=== PATIENT | female | born 1950 | race Two or more races ===

== ENCOUNTER 2019-03-30 11:03 | Emergency (ER) | payer MEDICARE, OTHER ==
[~2019-03-30] VITALS: Ht 162.6 cm; Wt 76.7 kg
--- NOTE | 2019-03-30 11:19 | NUR ---
left thumb pain s/p metal equipment in the gym fell on her thumb. kept comfortable, will continue to monitor accordingly.
--- NOTE | 2019-03-30 11:26 | NUR ---
x-ray tech at bedside
[2019-03-30] MEDS ORDERED: TDAP [DIPH/PERTUSSIS/TET] 0.5 ML VIAL IM ONE ×2 (12:27→12:30)
[2019-03-30 12:32] VITALS: BP 135/81
--- NOTE | 2019-03-30 12:33 | NUR ---
Patient discharged to home in stable condition. Written and verbal after care instructions given. Patient verbalizes understanding of instruction.
== END 2019-03-30 12:33 | disposition home or self-care (01) ==
LOC: ER 11:03
DX: S62.522B Displaced fracture of distal phalanx of left thumb, initial encounter for open fracture (principal); E03.9 Hypothyroidism, unspecified; Z88.6 Allergy status to analgesic agent; W20.8XXA Other cause of strike by thrown, projected or falling object, initial encounter; Y93.B9 Activity, other involving muscle strengthening exercises; Y92.89 Other specified places as the place of occurrence of the external cause; Y99.8 Other external cause status
CPT/HCPCS: 29130; 73140; 90471; 90715; 99283; A6403

== ENCOUNTER 2022-08-09 20:15 | Inpatient (IN) | payer MEDICARE, OTHER ==
[~2022-08-09] VITALS: Ht 162.6 cm; Wt 85.3 kg
--- NOTE | 2022-08-09 20:30 | NUR ---
HIRA 89 FROM HOME C/O "COULDNT TAKE CARE OF MYSELF" PT RANI FROM [facility] BS DIDNT LIKE IT. 08/05/21 LEFT TIB/FIB OSTEOTOMY
--- NOTE | 2022-08-09 21:04 | NUR ---
CALLED [facility], PAGED MELINDA SINGLETON GASTROINTESTINAL TECHNICIAN FOR ADMISSION
[2022-08-09 21:25] LABS: BASOPHILS # (AUTO) 0.1 K/uL (0.0-0.2); BASOPHILS % (AUTO) 2.3 % (0.0-2.0); EOSINOPHILS % (AUTO) 3.4 % (0.0-6.0); HEMATOCRIT 42 % (33-45); HEMOGLOBIN 13.8 g/dL (11.5-14.8); LYMPHOCYTES % (AUTO) 17.2 % (20.0-44.0); MEAN CORPUSCULAR HGB CONC 33 g/dl (31.0-36.0); MEAN CORPUSCULAR VOLUME 88 fL (82-100); MONOCYTES # (AUTO) 0.5 K/uL (0.1-1.30); MONOCYTES % (AUTO) 7.8 % (2.0-12.0); NEUTROPHILS # (AUTO) 4.2 K/uL (1.8-8.9); NEUTROPHILS % (AUTO) 69.3 % (43.0-81.0); PLATELET COUNT (AUTO) 251 K/uL (150-450); WHITE BLOOD COUNT (AUTO) 6.1 K/uL (4.3-11.0)
[2022-08-09 21:30] LABS: CALCIUM, SERUM 9.4 mg/dL (8.5-10.1); CARBON DIOXIDE 28 mmol/L (21-32); CHLORIDE 101 mmol/L (98-107); CREATININE 0.7 mg/dL (0.6-1.3); GLUCOSE 129 mg/dL (74-106); POTASSIUM 3.4 mmol/L (3.5-5.1); SODIUM SERUM 140 mmol/L (136-145); UREA NITROGEN, BLOOD 7 mg/dL (7-18)
--- NOTE | 2022-08-09 21:39 | NUR ---
COVID ANTIGEN COLLECTED SENT TO LAB
--- NOTE | 2022-08-09 21:40 | NUR ---
MRSA COLLECTED SENT TO LAB
[2022-08-09] MEDS ORDERED: oxyCODONE/APAP (5/325 MG) 1 UDTAB TABLET PO ONE (22:00)
[2022-08-09] MEDS ORDERED: oxyCODONE/APAP (5/325 MG) 1 UDTAB TABLET ONE (22:01)
[2022-08-09] MEDS ORDERED: MAGNESIUM HYDROXIDE 30 ML UDC PO PRN (23:30)
[2022-08-09] MEDS ORDERED: ACETAMINOPHEN 325 MG TABLET PO PRN (23:30)
[2022-08-09] MEDS ORDERED: HYDROCODONE/APAP 10/325MG TABLET PO PRN (23:30)
[2022-08-09] MEDS ORDERED: ONDANSETRON HCL/PF 4 MG/2 ML VIAL IVP PRN (23:30)
[2022-08-09] MEDS ORDERED: Z GUARD REMEDY 4 OZ OINT TP PRN (23:30)
[2022-08-09] MEDS ORDERED: POTASSIUM CHLORIDE 10 MEQ TABLET.SA PO ONE (23:30)
--- NOTE | 2022-08-10 00:05 | NUR ---
REPORT GIVEN TO [facility]
--- NOTE | 2022-08-10 00:19 | NUR ---
PT MOVED TO 323-1
--- NOTE | 2022-08-10 00:30 | NUR ---
MS TRAVEL MED SURG RN NOTE RECEIVED PATIENT FROM ER IN ROOM 323-1 VIA GURNEY. PT BEING ADMITTED WITH DIAGNOSIS OF FAILURE TO THRIVE. PT IS A/OX4, ABLE TO MAKE NEEDS KNOWN. ON ROOM AIR, TOLERATING WELL. NO SIGN OF SOB, AND RESPIRATORY DISTRESS NOTED. IV ACCESS TO RIGHT AC #20G, SL, IV PATENT AND INTACT. PT IS ORIENTED TO ROOM. INITIAL ASSESSMENT COMPLETED. PT HAD SURGERY LAST WEEK, AND HAS EXTERNAL FIXATOR TO LEFT LEG. PICTURE TAKEN, AND PLACED IN CHART. BELONGINGS VERIFIED, AND BELONGING LIST SIGNED, AND PLACED IN CHART. PT IS USING BEDPAN. SAFETY MEASURE IN PLACE, CALL LIGHT WITHIN REACH, BED IN LOW POSITION, SR UP X2. WILL CONTINUE TO MONITOR PT.
--- NOTE | 2022-08-10 01:30 | NUR ---
MS RN NOTE PT HAS OWN HOME MEDS. MEDS PLACED IN BAG, AND WILL BE SENT TO PHARMACY. PT STATES THAT SHE TAKES THESE MEDS DAILY. MD SINGLETON CALLED, AND ASKED TO RECONCILE MEDS. AWAITING FOR MD TO ADD HOME MEDS.
[2022-08-10 06:20] LABS: BASOPHILS # (AUTO) 0.1 K/uL (0.0-0.2); EOSINOPHILS % (AUTO) 5.6 % (0.0-6.0); HEMATOCRIT 41 % (33-45); HEMOGLOBIN 13.3 g/dL (11.5-14.8); LYMPHOCYTES # (AUTO) 1.7 K/uL (0.8-4.8); MEAN CORPUSCULAR HGB CONC 32 g/dl (31.0-36.0); MEAN CORPUSCULAR VOLUME 88 fL (82-100); MONOCYTES # (AUTO) 0.5 K/uL (0.1-1.30); MONOCYTES % (AUTO) 8.5 % (2.0-12.0); NEUTROPHILS # (AUTO) 3.5 K/uL (1.8-8.9); NEUTROPHILS % (AUTO) 56.9 % (43.0-81.0); PLATELET COUNT (AUTO) 253 K/uL (150-450); RED BLOOD CELL COUNT(AUTO) 4.65 MIL/uL (4.0-5.2); WHITE BLOOD COUNT (AUTO) 6.1 K/uL (4.3-11.0)
[2022-08-10 06:30] LABS: CREATININE 0.6 mg/dL (0.6-1.3); MAGNESIUM 2.2 mg/dL (1.8-2.4); POTASSIUM 3.2 mmol/L (3.5-5.1)
[2022-08-10] MEDS: MORPHINE SULFATE INJ 2 MG/ML DISP.SYRIN IV PRN ×3 (06:44→18:17)
--- NOTE | 2022-08-10 06:44 | NUR ---
MS RN NOTE PT REPORTS PAIN TO LEFT LEG. NORCO REMOVED FROM [facility] BUT PT REFUSES NORCO. NORCO RETURNED, AND MORPHINE IVP ADMINISTERED TO PT.
--- NOTE | 2022-08-10 06:50 | NUR ---
MS CLOSING NOTE PT LEFT SITTING IN BED, AWAKE. PT A/O X4, ON RA, TOLERATING RA WELL. NO SOB, NO RESPIRATORY DISTRESS NOTED. ALL NEEDS MET. SAFETY MEASURES IN PLACE: CALL LIGHT WITHIN REACH, BED IN LOW POSITION, SR UP X2. WILL ENDORSE PT TO AM SHIFT NURSE FOR LISSA.
--- NOTE | 2022-08-10 07:19 | NUR ---
MS RN OPENING NOTE RECEIVED PATIENT IN BED, ALERT AND ORIENTED X4, ABLE TO MAKE NEEDS KNOWN. ON ROOM AIR, WITH EQUAL AND UNLABORED BREATHING, TOLERATING WELL. NO SIGN RESPIRATORY DISTRESS NOTED. WITH IV ACCESS TO RIGHT AC #20G ON SALINE LOCK, PATENT AND INTACT. WITH EXTERNAL FIXATOR TO LEFT LEG. WAS GIVEN MORPHINE AROUND 0644, NO COMPLAIN OF PAIN AT THIS TIME. IN GOOD DISPOSITION. SAFETY MEASURE IN PLACE, CALL LIGHT WITHIN REACH, BED IN LOW LOCKED POSITION, SR UP X2. WILL CONTINUE WITH PLAN OF CARE.
[2022-08-10 08:00] VITALS: BP 151/70
[2022-08-10] MEDS: PANTOPRAZOLE 40 MG TABLET.DR PO SCH (08:19)
[2022-08-10] MEDS: ENOXAPARIN SODIUM 40 MG/0.4 ML DISP.SYRIN SQ SCH (08:20)
[2022-08-10] MEDS ORDERED: ACET-2605 PO (09:07)
[2022-08-10] MEDS ORDERED: MYRBETRIQ PO (09:07)
[2022-08-10] MEDS ORDERED: LEVO150T8 PO (09:07)
[2022-08-10] MEDS ORDERED: BUSP10TA3 PO (09:07)
[2022-08-10] MEDS ORDERED: EZET10TA32 PO (09:07)
[2022-08-10] MEDS ORDERED: LIOT5TAB11 PO (09:07)
[2022-08-10] MEDS ORDERED: POTASSIUM CHLORIDE 20 MEQ POWDER PACKET PO ONE (10:00)
--- NOTE | 2022-08-10 10:15 | NUR ---
MS RN NOTE SEEN BY DR. PINA
--- NOTE | 2022-08-10 10:30 | NUR ---
MS RN NOTE SEEN BY PT
[2022-08-10] MEDS ORDERED: EZETIMIBE 10 MG TABLET PO SCH (11:00)
[2022-08-10] MEDS: LEVOTHYROXINE SODIUM 75 MCG TABLET PO SCH (11:38)
[2022-08-10] MEDS: LIOTHYRONINE SODIUM (5 MCG/TA 5 MCG TABLET PO SCH (11:38)
--- NOTE | 2022-08-10 14:53 | NUR ---
MS RN NOTE ENDORSED TO LUIS IRENE FOR CONTINUITY OF CARE.
[2022-08-10] MEDS ORDERED: HOME MED MISCELLANEOUS PO SCH (15:00)
[2022-08-10 16:00] VITALS: BP 107/50
[2022-08-10] MEDS ORDERED: busPIRone HCL 10 MG TABLET PO SCH ×2 (17:00→21:00)
--- NOTE | 2022-08-10 19:06 | NUR ---
MS CLOSING NOTE (DAY SHIFT) PT SITTING IN BED, AWAKE. PT A/O X4, ON RA, TOLERATING RA WELL. NO SOB, NO RESPIRATORY DISTRESS NOTED. ALL NEEDS MET. SAFETY MEASURES IN PLACE: CALL LIGHT WITHIN REACH, BED IN LOW POSITION, SR UP X2. WILL ENDORSE PT TO GLAZING DEPARTMENT SUPERVISOR NURSE FOR LISSA.
[2022-08-10 20:00] VITALS: BP_SYST 121; BP_SYST 143; BP_DIAS 82; BP_DIAS 90
--- NOTE | 2022-08-10 20:04 | NUR ---
MS RN OPENING NOTES; RECEIVED PATIENT AWAKE IN BED, BED IN LOW POSITION CALL LIGHTS WITHIN REACH, NO COMPLAIN OF PAIN AND DISCOMFORT AT THIS TIME , ON ROOM AIR SATURATING WELL, PATIENT IS A/OX4 ABLE TO MAKE NEEDS KNOWN WITH RIGHT LEG INTERNAL FIXATOR NO BLEEDING WAS OBSERVED, IV LINE AT RIGHT AC-SL, PATIENT KEPT CLEAN AND DRY ALL NEEDS MET WILL CONTINUE TO MONITOR.
[2022-08-10 20:50] VITALS: BP 143/90
[2022-08-10] MEDS: EZETIMIBE 10 MG TABLET PO SCH (21:11)
[2022-08-11] MEDS: MORPHINE SULFATE INJ 2 MG/ML DISP.SYRIN IV PRN ×5 (01:59→21:16)
[2022-08-11] MEDS: LIOTHYRONINE SODIUM (5 MCG/TA 5 MCG TABLET PO SCH (06:43)
[2022-08-11] MEDS: LEVOTHYROXINE SODIUM 75 MCG TABLET PO SCH (06:43)
--- NOTE | 2022-08-11 06:57 | NUR ---
MS RN CLOSING NOTES; PATIENT AWAKE IN BED, BED IN LOW POSITION, CALL LIGHTS WITHIN REACH, NO COMPLAIN OF PAIN AND DISCOMFORT AT THIS TIME, ON ROOM AIR SATURATING WELL, PATIENT IS A/O X4 ABLE TO MAKE NEEDS KNOWN, ON PAIN MANAGEMENT, WITH LEFT LEG INTERNAL FIXATOR, KEPT CLEAN AND DRY, PATIENT KEPT CLEAN AND DRY ALL NEEDS MET ENDORSE TO INCOMING SHIFT.
--- NOTE | 2022-08-11 07:30 | NUR ---
MS RN OPENING NOTE RECEIVED PATIENT IN BED, AWAKE, A/O X4, ABLE TO MAKE NEEDS KNOWN. NO SIGNS OF ACUTE DISTRESS NOTED. ON ROOM AIR TOLERATING WELL. NO SOB NOTED, BREATHING EVEN AND UNLABORED. WITH IV ACCESS TO RIGHT AC #20G ON SALINE LOCK, PATENT AND INTACT. WITH EXTERNAL FIXATOR TO LEFT LEG. SAFETY MEASURE IN PLACE, CALL LIGHT WITHIN REACH, BED IN LOW AND LOCKED POSITION, SIDE RAILS UP X2. WILL CONTINUE WITH PLAN OF CARE.
--- NOTE | 2022-08-11 07:42 | NUR ---
MS RN PATIENT COMPLAINS OF PAIN 9 OUT OF 10 AND ASK FOR PAIN MEDICATION. PRN MEDICATION OF MORPHINE 2MG/ML GIVEN. WILL CONTINUE TO MONITOR
--- NOTE | 2022-08-11 08:15 | NUR ---
MS RN SEEN BY DR. SOLIZ.
[2022-08-11] MEDS: HOME MED MISCELLANEOUS PO SCH (08:57)
[2022-08-11] MEDS: PANTOPRAZOLE 40 MG TABLET.DR PO SCH (08:57)
[2022-08-11] MEDS: ENOXAPARIN SODIUM 40 MG/0.4 ML DISP.SYRIN SQ SCH (09:05)
[2022-08-11] MEDS: busPIRone 5 MG TABLET PO SCH ×2 (09:07→21:16)
[2022-08-11 09:17] VITALS: BP 155/69
[2022-08-11] MEDS ORDERED: POTASSIUM CHLORIDE 20 MEQ TAB.PRT.SR PO ONE (10:30)
--- NOTE | 2022-08-11 13:00 | NUR ---
MS RN PATIENT COMPLAINS OF PAIN 9 OUT OF 10 IN HER LLE AND ASK FOR PAIN MEDICATION. PRN MEDICATION OF MORPHINE 2MG/ML GIVEN. WILL CONTINUE TO MONITOR
[2022-08-11 16:00] VITALS: BP 126/72
--- NOTE | 2022-08-11 17:15 | NUR ---
MS RN PATIENT COMPLAINS OF PAIN 9 OUT OF 10 AND ASK FOR PAIN MEDICATION. PRN MEDICATION OF MORPHINE 2MG/ML GIVEN. WILL CONTINUE TO MONITOR
--- NOTE | 2022-08-11 18:49 | NUR ---
MS RN CLOSING NOTE PATIENT IN BED, AWAKE, A/O X4, ABLE TO MAKE NEEDS KNOWN. NO SIGNS OF ACUTE DISTRESS NOTED. ON ROOM AIR TOLERATED WELL. NO SOB NOTED, BREATHING EVEN AND UNLABORED. WITH IV ACCESS TO RIGHT AC #20G ON SALINE LOCK, PATENT AND INTACT. WITH EXTERNAL FIXATOR TO LEFT LEG. ALL DUE MEDS GIVEN. ALL NURSING NEEDS ATTENDED. SAFETY MEASURE IN PLACED, CALL LIGHT WITHIN REACH, BED IN LOW AND LOCKED POSITION, SIDE RAILS UP X2. EMILIAE TO REHABILITATION THERAPY TECHNICIAN NURSE FOR CONTINUITY OF CARE.
--- NOTE | 2022-08-11 19:28 | NUR ---
MS RN OPENING NOTES: RECEIVED PATIENT AWAKE IN BED, BED IN LOW POSITION CALL LIGHTS WITHIN REACH, NO COMPLAIN OF PAIN AND DISCOMFORT AT THIS TIME, ON ROOM AIR SATURATING WELL, NO SOB WAS OBSERVED, PATIENT IS A/O X4 ABLE TO MAKE NEEDS KNOWN, IV LINE AT RAC#20SL, WITH LEFT LEG EXTERNAL FIXATOR CLEAN AND DRY, NO INFECTION WAS NOTED,PATIENT KEPT CLEAN AND DRY ALL NEEDS MET WILL CONTINUE TO MONITOR.
[2022-08-11 20:00] VITALS: BP 117/54
[2022-08-11] MEDS: EZETIMIBE 10 MG TABLET PO SCH (21:16)
[2022-08-12] MEDS: MORPHINE SULFATE INJ 2 MG/ML DISP.SYRIN IV PRN ×6 (01:14→21:33)
[2022-08-12] MEDS: LEVOTHYROXINE SODIUM 75 MCG TABLET PO SCH (06:35)
[2022-08-12] MEDS: LIOTHYRONINE SODIUM (5 MCG/TA 5 MCG TABLET PO SCH (06:35)
--- NOTE | 2022-08-12 07:03 | NUR ---
RN CLOSING NOTES: PATIENT SLEEP IN BED COMFORTABLY AROUSABLE TO VERBAL STIMULI, BED IN LOW POSITION KRYSTA LIGHTS WITHIN REACH, NO COMPLAIN OF PAIN AND DISCOMFORT AT THIS TIME, ON ROOM AIR SATURATING WELL,IV LINE AT RAC# 20SL, WITH LEFT LEG EXTERNAL FIXATOR, NO INFECTION WAS OBSERVED, PATIENT IS AMBULATORY, TO BEDSIDE COMMODE WITH ASSISTANCE, KEPT CLEAN AND DRY ALL NEEDS MET ENDORSE TO INCOMING SHIFT.
--- NOTE | 2022-08-12 07:15 | NUR ---
MS RN OPENING NOTE RECEIVED PATIENT IN BED AWAKE, ALERT AND ORIENTED X4, ABLE TO MAKE NEEDS KNOWN. ON ROOM AIR, WITH EQUAL AND UNLABORED BREATHING, TOLERATING WELL. NO SIGN RESPIRATORY DISTRESS NOTED. WITH IV ACCESS TO RIGHT AC #20G ON SALINE LOCK, PATENT AND INTACT. WITH EXTERNAL FIXATOR TO LEFT LEG. WAS GIVEN MORPHINE AROUND 0515, NO COMPLAIN OF PAIN AT THIS TIME. IN GOOD DISPOSITION. SAFETY MEASURE IN PLACE, CALL LIGHT WITHIN REACH, BED IN LOW LOCKED POSITION, SR UP X2. WILL CONTINUE WITH PLAN OF CARE.
--- NOTE | 2022-08-12 08:02 | NUR ---
WOUND CARE CONSULT: PT PRESENTS WITH EXTERNAL FIXATOR DEVICE TO LEFT LOWER EXTREMITY, PRESENT ON ADMISSION. DR CROCKER CALLED FOR DPM CONSULT. MD IN AGREEMENT WITH PLAN OF CARE. PT IS ABLE TO TURN AND REPOSITION IN BED WITH MINIMAL ASSISTANCE.
[2022-08-12] MEDS: ENOXAPARIN SODIUM 40 MG/0.4 ML DISP.SYRIN SQ SCH (08:52)
[2022-08-12 09:06] VITALS: BP 139/70
[2022-08-12] MEDS: busPIRone 5 MG TABLET PO SCH ×2 (09:06→20:15)
[2022-08-12] MEDS: PANTOPRAZOLE 40 MG TABLET.DR PO SCH (09:06)
[2022-08-12] MEDS: HOME MED MISCELLANEOUS PO SCH (09:06)
--- NOTE | 2022-08-12 12:18 | NUR ---
MS RN NOTE PATIENT SEEN BY MD WITH ORDER FOR DISCHARGE. HEALTH TEACHING DONE REGARDING DISCHARGE AND DISCHARGE INSTRUCTIONS. VERBALIZED UNDERSTANDING AND APPRECIATION. WILL CONTINUE WITH PLAN OF CARE. AWAITING TRANSPORTATION.
--- NOTE | 2022-08-12 15:10 | NUR ---
MS RN NOTE SEEN BY PHYSICAL THERAPY TOLERATED WELL.
[2022-08-12 16:16] VITALS: BP 107/69
--- NOTE | 2022-08-12 18:46 | NUR ---
MS RN CLOSING NOTE PATIENT IN BED AWAKE, ALERT AND ORIENTED X4, ABLE TO MAKE NEEDS KNOWN. ON ROOM AIR, WITH EQUAL AND UNLABORED BREATHING, TOLERATING WELL. NO SIGN RESPIRATORY DISTRESS NOTED. WITH IV ACCESS TO RIGHT AC #20G ON SALINE LOCK, PATENT AND INTACT. WITH EXTERNAL FIXATOR TO LEFT LEG. ASKED FOR MORPHINE AND GIVEN AROUND 173, NO COMPLAIN OF PAIN AT THIS TIME. SAFETY MEASURE IN PLACE, CALL LIGHT WITHIN REACH, BED IN LOW LOCKED POSITION, SIDERAILS UP X2. WILL ENDORSE TO NEXT SHIFT FOR CONTINUITY OF CARE.
--- NOTE | 2022-08-12 19:15 | NUR ---
MS RN OPENING NOTE RECEIVED PATIENT IN BED AWAKE, ALERT AND ORIENTED X4, ABLE TO MAKE NEEDS KNOWN. ON ROOM AIR, BREATHING EVEN AND UNLABORED, TOLERATING WELL. NO SIGN/SX OF RESPIRATORY DISTRESS NOTED. WITH IV ACCESS TO RIGHT AC #20G ON SALINE LOCK, PATENT AND INTACT. WITH EXTERNAL FIXATOR DEVICE TO LEFT LOWER EXTREMITY. PATIENT IS ABLE TO TURN AND REPOSITION IN BED WITH MINIMAL ASSISTANCE. NO COMPLAIN OF PAIN AT THIS TIME. SAFETY MEASURE IN PLACE, CALL LIGHT WITHIN REACH, BED IN LOW LOCKED POSITION, SR UP X2. WILL CONTINUE TO MONITOR PATIENT THROUGHOUT THE SHIFT.
[2022-08-12 20:00] VITALS: BP 126/54
[2022-08-12] MEDS: EZETIMIBE 10 MG TABLET PO SCH (21:10)
[2022-08-13] MEDS: MORPHINE SULFATE INJ 2 MG/ML DISP.SYRIN IV PRN ×5 (01:33→21:08)
--- NOTE | 2022-08-13 06:18 | NUR ---
MS RN CLOSING NOTE PATIENT IN BED ASLEEP, AROUSES EASILY. BREATHING EVEN AND UNLABORED, TOLERATING WELL. NO SIGN/SX OF RESPIRATORY DISTRESS NOTED. WITH IV ACCESS TO RIGHT AC #20G ON SALINE LOCK, PATENT AND INTACT. WITH EXTERNAL FIXATOR DEVICE TO LEFT LOWER EXTREMITY. PATIENT IS ABLE TO TURN AND REPOSITION IN BED WITH MINIMAL ASSISTANCE. NO COMPLAIN OF PAIN AT THIS TIME. SAFETY MEASURES IN PLACE, CALL LIGHT WITHIN REACH, BED IN LOW LOCKED POSITION, SR UP X2. WILL ENDORSE TO ONCOMING SHIFT FOR CONTINUITY OF CARE.
[2022-08-13 07:00] VITALS: BP 125/69
[2022-08-13] MEDS: PANTOPRAZOLE 40 MG TABLET.DR PO SCH (07:46)
[2022-08-13] MEDS: LIOTHYRONINE SODIUM (5 MCG/TA 5 MCG TABLET PO SCH (07:46)
[2022-08-13] MEDS: LEVOTHYROXINE SODIUM 75 MCG TABLET PO SCH (07:46)
--- NOTE | 2022-08-13 08:02 | NUR ---
MS RN OPENING NOTE Patient in bed, awake. A/O x 4, able to make needs known. On room air, breathing evenly and unlabored. No SOB or s/s of distress noted. IV access on RAC #20 SL, intact and patent. External fixator noted on LLE with mile swelling. Patient complained of pain on LLE 8/10 on pain scale, PRN Morphine 2 mg IV given. Safety precautions in place: bed in low, locked position; siderails up x2; call light within reach. Will continue to monitor.
[2022-08-13] MEDS: busPIRone 5 MG TABLET PO SCH ×2 (08:38→20:54)
[2022-08-13] MEDS: HOME MED MISCELLANEOUS PO SCH (08:38)
[2022-08-13] MEDS: ENOXAPARIN SODIUM 40 MG/0.4 ML DISP.SYRIN SQ SCH (08:41)
[2022-08-13 16:00] VITALS: BP 126/66
--- NOTE | 2022-08-13 19:30 | NUR ---
MS RN OPENING NOTE RECEIVED PATIENT FROM AM NURSE; PATIENT RESTING IN BED, A/O X 4, ABLE TO MAKE NEEDS KNOWN; STABLE ON ROOM AIR, BREATHING EVENLY AND NO S/S OF DISTRESS NOTED; WITH IV ACCESS ON RAC G#20 SALINE LOCK; WITH EXTERNAL FIXATOR ON LLE; ENCOURAGED VERBALIZATION OF NEEDS; SAFETY MEASURES IMPLEMENTED, BED LOCKED IN LOWEST POSITION, SIDE RAILS UP X 2, CALL LIGHT AND TABLE WITHIN REACH; WILL CONTINUE TO MONITOR THROUGHOUT SHIFT
--- NOTE | 2022-08-13 19:48 | NUR ---
MS RN CLOSING NOTE Patient in bed, resting. A/O x 4, able to make needs known. Stable on room air, breathing evenly and unlabored. No SOB or s/s of distress noted. IV access on RAC #20 SL, intact and patent. External fixator noted on LLE with mile swelling. All needs attended to. Due meds given. Safety precautions in place: bed in low, locked position; siderails up x2; call light within reach. Will endorse to sap business objects consultant nurse for LISSA.
[2022-08-13 20:00] VITALS: BP 115/51
[2022-08-13] MEDS: EZETIMIBE 10 MG TABLET PO SCH (21:01)
[2022-08-14] MEDS: MORPHINE SULFATE INJ 2 MG/ML DISP.SYRIN IV PRN ×4 (01:15→17:17)
[2022-08-14] MEDS: LEVOTHYROXINE SODIUM 75 MCG TABLET PO SCH (06:31)
[2022-08-14] MEDS: PANTOPRAZOLE 40 MG TABLET.DR PO SCH (06:31)
[2022-08-14] MEDS: LIOTHYRONINE SODIUM (5 MCG/TA 5 MCG TABLET PO SCH (06:31)
--- NOTE | 2022-08-14 06:56 | NUR ---
MS RN CLOSING NOTE PATIENT IN BED, A/O X 4, ABLE TO MAKE NEEDS KNOWN; STABLE ON ROOM AIR, BREATHING EVENLY AND NO S/S OF DISTRESS NOTED; WITH IV ACCESS ON RAC G#20 SALINE LOCK, INTACT AND PATENT; WITH EXTERNAL FIXATOR ON LLE; ADMINISTERED MEDICATIONS PRESCRIBED; PATIENT'S NEEDS ATTENDED; PATIENT IS ON PAIN MANAGEMENT; SAFETY MEASURES IMPLEMENTED, BED LOCKED IN LOWEST POSITION, SIDE RAILS UP X 2, CALL LIGHT AND TABLE WITHIN REACH; WILL ENDORSE TO AM NURSE FOR LISSA.
[2022-08-14] MEDS: HOME MED MISCELLANEOUS PO SCH (08:06)
[2022-08-14] MEDS: busPIRone 5 MG TABLET PO SCH (08:07)
[2022-08-14] MEDS: ENOXAPARIN SODIUM 40 MG/0.4 ML DISP.SYRIN SQ SCH (08:07)
[2022-08-14] MEDS ORDERED: BISACODYL (5 MG) 5 MG TABLET.DR PO PRN (11:30)
[2022-08-14 16:00] VITALS: BP 126/55
--- NOTE | 2022-08-14 17:10 | NUR ---
DISCHARGE SUMMARY PATIENT IS A/O X4. PAIN MANAGED WITH MORPHINE. LEFT LOWER LEG WITH EXTERNAL FIXATOR. PIN DRESSING C/D/I. SAFETY MEASURES MAINTAINED. BED IN LOWEST POSITION, BRAKES LOCKED. SIDE RAILS UP X2. CALL LIGHT WITHIN REACH. DISCHARGE INSTRUCTIONS AND HEALTH TEACHINGS GIVEN, PT VERBALIZED UNDERSTANDING. REPORT GIVEN TO AMANDA AT 1705. [facility] HOME MEDS GIVEN TO PT. ALL BELONGINGS SENT WITH PATIENT. ESTIMATED GEOPHYSICAL PROSPECTING SURVEYOR TIME AT 1930.
--- NOTE | 2022-08-14 19:30 | NUR ---
MS RN OPENING NOTE RECEIVED PATIENT IN BED, WITH HOB ELEVATED, ALERT AND ORIENTED X4. ABLE TO COMMUNICATE NEEDS WITH THE STAFFS. AFEBRILE AND NOT IN ANY FORM OF ACUTE DISTRESS. BREATHING EVEN AND NON LABORED. WITH IV ACCESS ON TOY 20G-SL. WITH LLE EXTERNAL FIXATOR. SAFETY MEASURES IN PLACE. KEPT BED IN LOCKED AND IN LOW POSITION. SIDE RAILS UP X2. ADVISED TO USE THE CALL LIGHT WHEN IN NEED OF ASSISTANCE.
--- NOTE | 2022-08-14 20:08 | NUR ---
MS MARKETING ACCOUNT EXECUTIVE NOTE PATIENT WAS PICKED UP BY 2 TRANSPORT STAFF, IN STABLE CONDITION WITH ALL HER BELONGINGS AND VALUABLES. REMOVED IV ACCESS AND NAME BAND. PER 1ST SHIFT, REPORT WAS GIVEN TO LUIS PATEL AND UPDATE WAS GIVEN TO ALMAS SMITH OF [facility]. LEFT THE UNIT AT AROUND 2007.
== END 2022-08-14 20:07 | DRG 641 ==
LOC: ER 20:27 → MED 23:57
PROVIDERS: ADMIT Nurse Practitioner Family; ATTEND Internal Medicine
DX: R62.7 Adult failure to thrive (principal); I10 Essential (primary) hypertension; G89.18 Other acute postprocedural pain; E03.9 Hypothyroidism, unspecified; Z88.6 Allergy status to analgesic agent; N32.81 Overactive bladder; Z96.652 Presence of left artificial knee joint; E78.5 Hyperlipidemia, unspecified
CPT/HCPCS: 36415; 80048-TC; 83735-TC; 84100-TC; 85025-TC; 87081-TC; 97112-TC; 97116-TC; 97530-TC; C9803; G0378; J1650; J2270